=== PATIENT | female | born 1930 | race Hispanic/Latino ===

== ENCOUNTER → 2017-04-12 | Outpatient (CLI) | payer MEDICARE | END | disposition home or self-care (01) | LOC: RAH 13:37 | PROVIDERS: ATTEND Internal Medicine Nephrology | DX: G31.9 Degenerative disease of nervous system, unspecified (principal); I63.9 Cerebral infarction, unspecified; I67.82 Cerebral ischemia | CPT/HCPCS: 70450 ==